=== PATIENT | male | born 1975 | race Two or more races ===

== ENCOUNTER 2023-06-26 15:41 | Emergency (ER) | payer OTHER ==
[2023-06-26 16:22] VITALS: RESP 18; TEMP 97.8; BMI 31.0
[2023-06-26] MEDS ORDERED: ACETAMINOPHEN INJECTION 100 ML IVPB ONE (17:17)
[2023-06-26 17:28] LABS: INR 1.02 (0.83-1.09); PROTHROMBIN TIME (PATIENT) 11.8 SEC (9.7-13.0)
[2023-06-26] MEDS ORDERED: MAG HYDROX/AL HYDROX/SIMETH 30 ML UNIT-DOSE CUP PO ONE (17:30)
[2023-06-26] MEDS ORDERED: FAMOTIDINE 20 MG/50 ML IVPB 20 MG/50 ML MG IVPB ONE (17:30)
[2023-06-26] MEDS ORDERED: ACETAMINOPHEN 1000 MG/100 ML BAG IVPB ONE (17:30)
[2023-06-26 17:35] LABS: BASO % 0.8 % (0-2.0); EOS % 4.5 % (0-4.5); HEMATOCRIT 43.2 % (35.4-49); HEMOGLOBIN 14.6 GM/dL (11.7-16.9); LYMPH % 24.7 % (8-40); MCH 29.6 pg (25.7-33.7); MCHC 33.9 g/dl (32.0-35.9); MEAN CELL VOLUME 87.3 fl (80-96); MEAN PLT VOLUME 9.6 fl (7.5-11.1); MONO % 5.6 % (3.8-10.2); NEUT % 64.4 % (42.8-82.8); PLATELET COUNT 188 10^3/uL (134-434); RBC 4.95 M/mm3 (4.00-5.60); RDW 13.2 % (11.9-15.9); WHITE BLOOD COUNT 9.2 K/mm3 (4.0-10.0)
[2023-06-26 17:39] LABS: POTASSIUM 4.2 mmol/L (3.5-5.1)
[2023-06-26 17:41] LABS: CALCIUM 9.3 mg/dL (8.5-10.1)
[2023-06-26 17:42] LABS: ALBUMIN 3.6 g/dl (3.4-5.0); BLOOD UREA NITROGEN 12.2 mg/dL (7-18)
[2023-06-26 17:45] LABS: CREATININE 1.1 mg/dL (0.55-1.3)
[2023-06-26 17:46] LABS: TOT PROT 7.1 g/dl (6.4-8.2)
[2023-06-26 20:46] VITALS: BP 127/78; PULSE 59
== END 2023-06-26 20:56 | disposition home or self-care (01) ==
LOC: JER 15:41
PROC: 3E033GC Introduction of Other Therapeutic Substance into Peripheral Vein, Percutaneous Approach (ICD-10-PCS; principal; 2023-06-26)
PROC: 3E033NZ Introduction of Analgesics, Hypnotics, Sedatives into Peripheral Vein, Percutaneous Approach (ICD-10-PCS; 2023-06-26)
DX: R07.9 Chest pain, unspecified (principal)
CPT/HCPCS: 36415; 71046-TC-FY; 80053; 84484; 85025; 85610; 85730; 93005; 93010; 99285-25